=== PATIENT | male | born 1985 | race Caucasian/White ===

== ENCOUNTER 2019-03-16 22:01 | Emergency (ER) | payer MEDICAID ==
[~2019-03-16] VITALS: Ht 175.3 cm; Wt 95.5 kg
[2019-03-16] MEDS ORDERED: guaiFENesin/DM 10ml UD oral syrup PO ONE (23:00)
[2019-03-16] MEDS ORDERED: loperamide 2mg capsule PO ONE (23:00)
[2019-03-16] MEDS ORDERED: normal saline 1000ml 1,000 ML IV ONE (23:10)
[2019-03-16 23:33] LABS: ALANINE AMINOTRANSFERASE 61 U/L (12-78); ALBUMIN 3.7 G/DL (3.4-5.0); ALBUMIN/GLOBULIN RATIO 1.2 (1.1-1.5); ALKALINE PHOSPHATASE 65 IU/L (46-116); ANION GAP 10 (8-16); ASPARTATE AMINO TRANSFERASE 40 U/L (10-37); BASOPHILS % (AUTO) 0.5 % (0-1); BILIRUBIN,TOTAL 0.4 MG/DL (0.1-1.0); BLOOD UREA NITROGEN 17 MG/DL (7-18); BUN/CREATININE RATIO 16.8 (5.4-32.0); CHLORIDE 107 MMOL/L (99-107); CREATININE 1.01 MG/DL (0.60-1.10); EOSINOPHILS # (AUTO) 0.1 X10'3 (0-0.9); EOSINOPHILS % (AUTO) 1.1 % (0-6); GLUCOSE 125 MG/DL (70-104); HEMATOCRIT 42.4 % (42.0-52.0); HEMOGLOBIN 14.5 g/dl (14.0-17.9); LYMPHOCYTES # (AUTO) 1.1 X10'3 (1.1-4.8); LYMPHOCYTES % (AUTO) 16.2 % (21-51); MEAN CORPUSCULAR HEMOGLOBIN 29.8 PG (27.0-31.0); MEAN CORPUSCULAR HGB CONC 34.2 g/dL (33.0-36.5); MEAN CORPUSCULAR VOLUME 87.2 FL (78-98); MEAN PLATELET VOLUME 10.5 FL (7.4-10.4); MONOCYTES # (AUTO) 0.5 X10'3 (0-0.9); MONOCYTES % (AUTO) 7.5 % (2-12); NEUTROPHILS # (AUTO) 4.9 X10'3 (1.8-7.7); NEUTROPHILS % (AUTO) 74.7 % (42-75); PLATELET COUNT 123 X10'3 (140-440); POTASSIUM 3.5 MMOL/L (3.5-5.1); RED BLOOD COUNT 4.86 X10'6 (4.70-6.10); RED CELL DISTRIBUTION WIDTH 13.6 % (11.5-14.5); SODIUM 140 MMOL/L (135-145); TOTAL CARBON DIOXIDE 23.2 MMOL/L (24-32); TOTAL PROTEIN 6.8 G/DL (6.4-8.2); WHITE BLOOD COUNT 6.6 X10'3 (4.5-11.0); eGFR 84 ML/MIN
[2019-03-16 23:34] LABS: CLARITY,URINE CLEAR (Clear); COLOR,URINE YELLOW (Yellow); GLUCOSE, URINE NEGATIVE (Neg); KETONES,URINE NEGATIVE (Neg); LEUKOCYTE ESTERASE ,URINE NEGATIVE (Neg); NITRITES, URINE NEGATIVE (Neg); OCCULT BLOOD,URINE NEGATIVE (Neg); PH,URINE 5.5 (4.8-8.0); PROTEIN,URINE 30 mg/dl (Neg)
[2019-03-16 23:50] LABS: UA COLLECTION TYPE CLN CATCH MIDSTREAM
[2019-03-16 23:54] LABS: BACTERIA,URINE NONE SEEN /HPF (Neg); RBC,URINE NONE SEEN /HPF (0-2); WBC,URINE 0-4 /HPF (0-4)
[2019-03-16 23:55] LABS: MUCUS STRANDS MANY /LPF (Neg); SQUAMOUS EPITHELIAL CELL,UR FEW /LPF (FEW)
[2019-03-16 23:56] LABS: FINE GRANULAR CAST 0-3 /LPF (NEGATIVE); TRANSITIONAL EPI CELLS,URINE FEW /HPF
[2019-03-17] MEDS ORDERED: LOPE2TAB25 PO (00:35)
[2019-03-17] MEDS ORDERED: DICY10CA88 PO (00:35)
[2019-03-17] MEDS ORDERED: BENZ-16 PO (00:35)
[2019-03-17 00:39] VITALS: BP 147/94
[2019-03-17 04:21] LABS: PLATELET ESTIMATE DECREASED
[2019-03-17 04:22] LABS: LARGE PLATELETS FEW
== END 2019-03-17 00:37 | disposition home or self-care (01) ==
LOC: ER 22:02
DX: R19.7 Diarrhea, unspecified (principal); B34.9 Viral infection, unspecified; F17.200 Nicotine dependence, unspecified, uncomplicated
CPT/HCPCS: 36415; 80053; 81001; 85025; 99283; J7030

== ENCOUNTER 2019-08-11 18:35 | Emergency (ER) | payer MEDICAID ==
[~2019-08-11] VITALS: Ht 175.3 cm; Wt 92.0 kg
[~2019-08-11 18:35] MED LIST: DICY10CA88 PO; LOPE2TAB25 PO
[2019-08-11 18:44] VITALS: BP 128/75
[2019-08-11] MEDS ORDERED: HYDR30CR79 TOP (19:45)
[2019-08-11 19:47] LABS: CLARITY,URINE CLEAR (Clear); COLOR,URINE YELLOW (Yellow); GLUCOSE, URINE NEGATIVE (Neg); KETONES,URINE NEGATIVE (Neg); LEUKOCYTE ESTERASE ,URINE NEGATIVE (Neg); NITRITES, URINE NEGATIVE (Neg); OCCULT BLOOD,URINE NEGATIVE (Neg); PROTEIN,URINE NEGATIVE (Neg); UROBILINOGEN,URINE 0.2 E.U/dL (0.2-1.0)
[2019-08-11 19:49] LABS: UA COLLECTION TYPE CLN CATCH MIDSTREAM
[2019-08-16 10:59] LABS: OCCULT BLOOD STOOL NEGATIVE (Neg)
== END 2019-08-11 20:30 | disposition home or self-care (01) ==
LOC: ER 18:36
DX: K64.9 Unspecified hemorrhoids (principal); R30.0 Dysuria; Z79.899 Other long term (current) drug therapy
CPT/HCPCS: 81003; 82272; 99283

== ENCOUNTER → 2020-09-25 | Emergency (ER) | payer MEDICAID ==
[~2020-09-25] VITALS: Ht 175.3 cm; Wt 89.0 kg
[~2020-09-25] MED LIST changes: +HYDR30CR79 TOP; +LIDOcaine 1% 30ml preserv. free vial IJ ONE; +LIDOcaine 1% 30ml preserv. free vial ONE; +TETanus/Pertussis (Acell)/Diphther VAC/PF (Tdap-Adult) 0.5ml syringe IMVAC ONE; +mupirocin 2% ointment 22GM TP STA
[2020-09-25 09:17] VITALS: BP 149/88
== END | disposition home or self-care (01) ==
LOC: ER 09:07
DX: S61.412A Laceration without foreign body of left hand, initial encounter (principal); Z72.89 Other problems related to lifestyle; Z79.899 Other long term (current) drug therapy; W26.8XXA Contact with other sharp object(s), not elsewhere classified, initial encounter; Y93.89 Activity, other specified; Y92.89 Other specified places as the place of occurrence of the external cause; Y99.8 Other external cause status
CPT/HCPCS: 12001; 90471; 90715; 99283; J2001

== ENCOUNTER → 2021-11-21 | Emergency (ER) | payer BC, MEDICAID ==
[~2021-11-21] VITALS: Ht 175.3 cm; Wt 87.8 kg
[~2021-11-21] MED LIST changes: -LIDOcaine 1% 30ml preserv. free vial IJ ONE; -LIDOcaine 1% 30ml preserv. free vial ONE; -TETanus/Pertussis (Acell)/Diphther VAC/PF (Tdap-Adult) 0.5ml syringe IMVAC ONE; -mupirocin 2% ointment 22GM TP STA
[2021-11-21 18:18] VITALS: BP 142/80
== END | disposition left against medical advice (07) ==
LOC: ER 18:05
DX: Z00.8 Encounter for other general examination (principal); Z53.21 Procedure and treatment not carried out due to patient leaving prior to being seen by health care provider

== ENCOUNTER 2022-03-23 01:11 | Emergency (ER) | payer MEDICAID ==
[~2022-03-23] VITALS: Ht 175.3 cm; Wt 85.0 kg
[2022-03-23 01:19] VITALS: BP 155/93
[2022-03-23] MEDS ORDERED: ibuprofen tablet 400 MG TABLET PO ONE (01:25)
== END 2022-03-23 02:43 | disposition home or self-care (01) ==
LOC: ER 01:12
DX: S62.396A Other fracture of fifth metacarpal bone, right hand, initial encounter for closed fracture (principal); S10.91XA Abrasion of unspecified part of neck, initial encounter; F41.9 Anxiety disorder, unspecified; F31.9 Bipolar disorder, unspecified; Z72.89 Other problems related to lifestyle; Z79.899 Other long term (current) drug therapy; W22.01XA Walked into wall, initial encounter; Y93.89 Activity, other specified; Y92.89 Other specified places as the place of occurrence of the external cause; Y99.8 Other external cause status
CPT/HCPCS: 29125; 73130; 99283; 99284; A4565; A6449